=== PATIENT | male | born 1970 | race Caucasian/White ===

== ENCOUNTER 2020-04-16 00:55 | Outpatient (CLI) | payer BC, SELFPAY ==
[2020-04-16 19:19] LABS: SARS-CoV-2 RNA PCR Negative
== END 2020-04-16 00:56 | disposition home or self-care (01) ==
LOC: ANHCOVIDDT 00:55
PROVIDERS: PCP Family Medicine; Visit Provider Internal Medicine Gastroenterology
DX: Z01.812 Encounter for preprocedural laboratory examination (principal); Z20.828 Contact with and (suspected) exposure to other viral communicable diseases
CPT/HCPCS: 87635; C9803; U0003

== ENCOUNTER 2020-04-18 00:10 | Day surgery (SDC) | payer BC, SELFPAY ==
[2020-04-18 08:26] VITALS: BP 116/67; PULSE 82; RESP 18; TEMP 36.1; O2SAT 100
[2020-04-18] MEDS: LACTATED RINGERS 1,000 ML 150 ML IV CONT (08:35)
[2020-04-18 08:44] LABS: Glucose Point of Care 90 (65-105)
--- NOTE | 2020-04-18 08:44 | WPDANESEPPF ---
Anes - Initial Pre Proc Eval Procedure: Operation Date: 04/18/20 09:00 Proposed Procedures p Screening Colonoscopy - Freddy Jean-Baptiste MD Date/Time: 04/18/20 08:44 Surgeon: Freddy Jean-Baptiste MD Pre Op Diagnosis: Neoplasm Screening Patient Data Age: 50 Gender: M Height: Weight: 110 kg Last Vital Signs Temp 96.9 F L 04/18/20 08:26 Pulse 82 04/18/20 08:26 Resp 18 04/18/20 08:26 BP 116/67 04/18/20 08:26 Pulse Ox 100 04/18/20 08:26 Allergies Allergy/AdvReac Type Severity Reaction Status Date / Time No Known Allergies Allergy Verified 04/18/20 08:22 Home Medications Medication Instructions Recorded Confirmed Type lamotrigine 50 mg disintegrating 50 mg PO BID 05/17/19 04/14/20 History tablet mecobalamin (vitamin B12) 5,000 5,000 mcg PO DAILY 05/17/19 04/14/20 History mcg disintegrating tablet risperidone 1 mg tablet 1 mg PO DAILY 05/17/19 04/14/20 History vitamin E 200 unit capsule 200 unit PO DAILY 05/17/19 04/14/20 History vitamin E 400 unit capsule 400 unit PO DAILY 05/17/19 04/14/20 History esomeprazole magnesium 20 mg 20 mg PO DAILY 07/16/19 04/14/20 History capsule,delayed release lamotrigine 200 mg tablet 200 mg PO BID tablet 01/07/20 04/14/20 History semaglutide 1 mg/dose (2 mg/1.5 1 mg SUB-Q WEEKLY 180 Days #9 ml 01/07/20 04/14/20 Rx mL) subcutaneous pen injector candesartan 16 1 tablet PO DAILY #90 tablet 01/08/20 04/14/20 Rx mg-hydrochlorothiazide 12.5 mg tablet pravastatin 80 mg tablet 80 mg PO DAILY #90 tablet 01/10/20 04/14/20 Rx testosterone 20.25 mg/1.25 gram 4 pump TOPICAL DAILY #75 gm 02/28/20 04/18/20 Rx (1.62 %) transdermal gel pump albuterol sulfate 2 puff INHALATION Q4-6H PRN 04/14/20 04/14/20 History clonazepam 0.5 mg PO TID 04/14/20 04/14/20 History trazodone 50 mg PO HS 04/14/20 04/14/20 History Patient hx anesthesia problems: none Family hx anesthesia problems: none [facility] Past Medical History Medical History Bipolar disorder GERD (gastroesophageal reflux disease) Kidney stone Obesity, Class II, BMI 35-39.9 Ptosis of eyelid Seasonal allergies Tinea cruris Type 2 diabetes mellitus with hyperglycemia Surgical History Surgical History History of partial thyroidectomy History of vasectomy Hx of tonsillectomy Family History Family History Father Diabetes mellitus Family history of cardiovascular disease Other Carcinoma of colon Family history of rheumatoid arthritis Social History Social History Smoking status: Light tobacco smoker Smoking end date: 07/11/91 Additional smoking assessment comments: Only now and then patient will smoke. Alcohol intake: never Substance use: never Substance use type: does not use Gender identity (if verbalized by the patient): Male Anes - Eval Final PreProcedure Day of Procedure 04/18/20 08:44 Patient weight: obese Heart: regular rate and rhythm Lungs: clear to auscultation Airway: Mallampati scale class II Neurological: alert and oriented Last oral intake: >/= 8 hours ASA classification: III Emergent: no Anesthetic plan: proceed Anesthesia type and monitoring: general GIVS and standard monitoring Informed Consent: The patient's anesthetic plan and its attendant risks and benefits were discussed with the patient/family/POA. Questions were solicited and answers provided to the satisfaction of the patient/family/POA.
--- NOTE | 2020-04-18 08:47 | PM.HPGS ---
History of Present Illness History of Present Illness Consent: Risks, benefits, and alternatives have been discussed and questions answered. Patient agrees to proceed with procedure. Chief complaint: Neoplasm Screening Narrative: Darci Davis is a 50 year old male here for first screening colonoscopy Review of Systems Constitutional: Constitutional: Denies headache(s) and Denies weakness Eyes: Eyes: Denies blurry vision ENT: Reports Normal hearing present, Denies headache(s) and Denies neck pain Cardiovascular: Cardiovascular: Denies chest pain and Denies dyspnea Respiratory: Respiratory: Denies dyspnea Gastrointestinal: Gastrointestinal: Reports no additional gastrointestinal complaints Genitourinary: Genitourinary: Denies dysuria Musculoskeletal: Musculoskeletal: Denies neck pain Integumentary/Breasts: Skin/Breast: Denies dry skin Neurologic: Reports Normal hearing present, Denies headache(s) and Denies weakness Psychiatric: Psychiatric: Denies anxiety Endocrine: Endocrine: Denies change in body appearance Hematologic/Lymphatic: Hematologic/Lymphatic: Denies easy bleeding Allergic/Immunologic: Allergic/Immunologic: Denies urticaria PMF Past Medical History Medical History (Updated 04/18/20 @ 08:47 by Freddy Jean-Baptiste MD) Bipolar disorder Colon cancer screening GERD (gastroesophageal reflux disease) Kidney stone Obesity, Class II, BMI 35-39.9 Ptosis of eyelid Seasonal allergies Tinea cruris Type 2 diabetes mellitus with hyperglycemia Surgical History Surgical History History of partial thyroidectomy History of vasectomy Hx of tonsillectomy Family History Family History Father Diabetes mellitus Family history of cardiovascular disease Other Carcinoma of colon Family history of rheumatoid arthritis Social History Social History Smoking status: Light tobacco smoker Smoking end date: 07/11/91 Additional smoking assessment comments: Only now and then patient will smoke. Alcohol intake: never Substance use: never Substance use type: does not use Gender identity (if verbalized by the patient): Male Meds Home Medications and Allergies Home Medications Medication Instructions Recorded Confirmed Type lamotrigine 50 mg disintegrating 50 mg PO BID 05/17/19 04/14/20 History tablet mecobalamin (vitamin B12) 5,000 5,000 mcg PO DAILY 05/17/19 04/14/20 History mcg disintegrating tablet risperidone 1 mg tablet 1 mg PO DAILY 05/17/19 04/14/20 History vitamin E 200 unit capsule 200 unit PO DAILY 05/17/19 04/14/20 History vitamin E 400 unit capsule 400 unit PO DAILY 05/17/19 04/14/20 History esomeprazole magnesium 20 mg 20 mg PO DAILY 07/16/19 04/14/20 History capsule,delayed release lamotrigine 200 mg tablet 200 mg PO BID tablet 01/07/20 04/14/20 History semaglutide 1 mg/dose (2 mg/1.5 1 mg SUB-Q WEEKLY 180 Days #9 ml 01/07/20 04/14/20 Rx mL) subcutaneous pen injector candesartan 16 1 tablet PO DAILY #90 tablet 01/08/20 04/14/20 Rx mg-hydrochlorothiazide 12.5 mg tablet pravastatin 80 mg tablet 80 mg PO DAILY #90 tablet 01/10/20 04/14/20 Rx testosterone 20.25 mg/1.25 gram 4 pump TOPICAL DAILY #75 gm 02/28/20 04/18/20 Rx (1.62 %) transdermal gel pump albuterol sulfate 2 puff INHALATION Q4-6H PRN 04/14/20 04/14/20 History clonazepam 0.5 mg PO TID 04/14/20 04/14/20 History trazodone 50 mg PO HS 04/14/20 04/14/20 History Allergies Allergy/AdvReac Type Severity Reaction Status Date / Time No Known Allergies Allergy Verified 04/18/20 08:22 Vital Signs Vital Signs - 24 hr 04/18/20 08:26 Temperature 96.9 F L Pulse Rate 82 Respiratory Rate 18 Blood Pressure 116/67 Pulse Oximetry 100 Exam Const: General: comfortable and no acute distress HENMT: Gene
[2020-04-18 09:15] VITALS: BP 106/73; PULSE 83; RESP 20; O2SAT 95
[2020-04-18 09:25] VITALS: BP 110/75; PULSE 85; RESP 21; O2SAT 96
[2020-04-18 09:35] VITALS: BP 114/70; PULSE 84; RESP 22; O2SAT 98
== END 2020-04-18 09:53 | disposition home or self-care (01) ==
PROVIDERS: PCP Family Medicine; Visit Provider Internal Medicine Gastroenterology
PROC: 0DJD8ZZ Inspection of Lower Intestinal Tract, Via Natural or Artificial Opening Endoscopic (ICD-10-PCS; CPT 45378; principal; 2020-04-18 09:00)
DX: Z12.11 Encounter for screening for malignant neoplasm of colon (principal); D12.3 Benign neoplasm of transverse colon; K57.30 Diverticulosis of large intestine without perforation or abscess without bleeding; K64.8 Other hemorrhoids; E11.9 Type 2 diabetes mellitus without complications; K21.9 Gastro-esophageal reflux disease without esophagitis; F31.9 Bipolar disorder, unspecified; Z72.0 Tobacco use; Z79.4 Long term (current) use of insulin
CPT/HCPCS: 45385; 88305; J2704; J7120

== ENCOUNTER → 2021-01-22 11:44 | Outpatient (CLI) | payer BC, SELFPAY ==
--- NOTE | ~2021-01-22 | US_ITS ---
EXAMINATION: US thyroid DATE: 01/22/2021 12:12 INDICATION: Nontoxic goiter, unspecified. Thyroid nodule. TECHNIQUE: Multiple ultrasound images of the thyroid were obtained. COMPARISON: Ultrasound 05/22/2019, 04/27/16 FINDINGS: The right thyroid lobe is absent. The left thyroid lobe measures 6.8 x 2.3 x 2.6 cm. In the left thy roid lobe, there is a 1.5 cm solid, hypoechoic, qvlfy-uwoo-msps nodule with smooth margin without ech ogenic foci (TI-RADS TR4), stable from 04/27/16. In the left thyroid lobe, there is a 1.7 cm solid, h ypoechoic, axogl-twmp-cqtx nodule with ill-defined margin without echogenic foci (TR4), stable from . In the left thyroid lobe, there is a 3.1 cm solid, hypoechoic, oiwud-keqq-sprn nodule with i ll-defined margin without echogenic foci (TR4), stable from 08/16/2018 when biopsy was benign. IMPRESSION: 1. Stable multinodular goiter, likely benign. Reviewed, dictated and finalized at location A.
== END ==
PROVIDERS: PCP Internal Medicine Endocrinology, Diabetes & Metabolism; Visit Provider Internal Medicine Endocrinology, Diabetes & Metabolism
DX: E04.2 Nontoxic multinodular goiter (principal)
CPT/HCPCS: 76536

== ENCOUNTER 2023-05-03 10:04 | Outpatient (CLI) | payer OTHER, SELFPAY ==
--- NOTE | 2023-05-03 11:00 | NEURO_ITS ---
Impression: # Complains of right elbow pain. Ozempic dependent diabetic for over 5 years. # No Carpal Tunnel Syndrome or ulnar neuropathy. # Normal needle/EMG exam of muscles including Triceps, Brachioradialis and Extensors. # Clinical correlation recommended. Nerve Conduction Studies Anti Sensory Summary Table Stim Site NR Peak (ms) P-T Amp (?V) Site1 Site2 Delta-P (ms) Dist (cm) Jp (m/s) Right Median Anti Sensory (2-3nd Digit) Wrist 3.0 45.2 Wrist 2-3nd Digit 3.0 14.0 47 Wrist 2.9 63.1 Wrist 2-3nd Digit 3.0 14.0 47 Right Radial Anti Sensory (Base 1st Digit) Wrist 2.5 12.0 Wrist Base 1st Digit 2.5 0.0 Right Ulnar Anti Sensory (5th Digit) Wrist 2.7 55.6 Wrist 5th Digit 2.7 14.0 52 Motor Summary Table Stim Site NR Onset (ms) O-P Amp (mV) Site1 Site2 Delta-0 (ms) Dist (cm) Jp (m/s) Right Median Motor (Abd Poll Brev) Wrist 3.4 3.8 A Elbow Wrist 50 31 60 A Elbow 8.7 1.9 Right Ulnar Motor (Abd Dig Minimi) Wrist 2.9 4.7 A Elbow Wrist 5.2 33.0 63 A Elbow 8.1 3.6 F Wave Studies NR F-Lat (ms) L-R F-Lat (ms) Right Median (Mrkrs) (Abd Poll Brev) 31.05 Right Ulnar (Mrkrs) (Abd Dig Min) 30.83 EMG Side Muscle Nerve Root Ins Act Fibs Amp Dur Recrt Comment Right 1stDorInt Ulnar C8-T1 Nml Nml Nml Nml Nml Right Ext Indicis Radial (Post Int) C7-8 Nml Nml Nml Nml Nml Right Ext Digitorum Radial (Post Int) C7-8 Nml Nml Nml Nml Nml Right BrachioRad Radial C5-6 Nml Nml Nml Nml Nml Right PronatorTeres Median C6-7 Nml Nml Nml Nml Nml Right Abd Poll Brev Median C8-T1 Nml Nml Nml Nml Nml Right ABD Dig Min Ulnar C8-T1 Nml Nml Nml Nml Nml Right Biceps Musculocut C5-6 Nml Nml Nml Nml Nml Right Triceps Radial C6-7-8 Nml Nml Nml Nml Nml Right Deltoid Axillary C5-6 Nml Nml Nml Nml Nml MTDD
== END 2023-05-03 10:05 | disposition home or self-care (01) ==
LOC: ANHNEURO 10:07
PROVIDERS: PCP Family Medicine; Visit Provider Plastic Surgery
DX: G56.31 Lesion of radial nerve, right upper limb (principal); M25.521 Pain in right elbow
CPT/HCPCS: 95886; 95909